=== PATIENT | female | born 1995 | race African-American/Black ===

== ENCOUNTER 2017-12-03 12:01 | Emergency (ER) | payer MEDICAID ==
[~2017-12-03] VITALS: Ht 160 cm; Wt 50.0 kg
[~2017-12-03 12:01] MED LIST: ALBU05
[2017-12-03 12:04] VITALS: BP 107/72
[2017-12-03] MEDS ORDERED: IPRATROPIUM BROMIDE (0.02%) 0.5MG/2.5ML NEB HHN STA (14:50)
[2017-12-03] MEDS ORDERED: ALBUTEROL (0.083%) 2.5MG/3ML NEB HHN STA (14:50)
[2017-12-03] MEDS ORDERED: PREDNISONE 20MG TABLET PO STA (15:13)
[2017-12-03] MEDS ORDERED: IPRATROPIUM BROMIDE (0.02%) 0.5MG/2.5ML NEB ONE (15:28)
[2017-12-03 15:34] LABS: CLARITY URINE CLOUDY (CLEAR); COLOR URINE YELLOW (YELLOW); KETONES URINE NEGATIVE (NEGATIVE); LEUKOCYTE ESTERASE URINE 1+ (NEGATIVE); NITRITE URINE POSITIVE (NEGATIVE); OCCULT BLOOD URINE TRACE (NEGATIVE); PROTEIN URINE NEGATIVE (NEGATIVE); SPECIFIC GRAVITY URINE 1.026 (1.005-1.030); UROBILINOGEN URINE 0.2 E.U./dL (0.2-1.0)
== END 2017-12-03 16:16 | disposition left against medical advice (07) ==
LOC: ER 12:11
DX: R06.02 Shortness of breath (principal); R05 Cough; J45.909 Unspecified asthma, uncomplicated; F12.10 Cannabis abuse, uncomplicated; Z88.0 Allergy status to penicillin
CPT/HCPCS: 81003; 81025; 87804; 94640; 99284; J7512

== ENCOUNTER 2024-02-09 19:10 | Emergency (ER) | payer MEDICAID ==
[~2024-02-09] VITALS: Ht 165.1 cm; Wt 92.0 kg
[2024-02-09 19:33] VITALS: BP 141/76; PULSE 81; RESP 17; TEMP 98.2; O2SAT 100
== END 2024-02-09 22:44 | disposition left against medical advice (07) ==
LOC: ER 19:10
DX: R07.9 Chest pain, unspecified (principal); Z53.21 Procedure and treatment not carried out due to patient leaving prior to being seen by health care provider
CPT/HCPCS: 71045; 93005